=== PATIENT | female | born 1985 | race American Indian/Alaskan Native ===

== ENCOUNTER 2021-08-28 04:16 | Emergency (ER) | payer SELFPAY ==
[2021-08-28] MEDS ORDERED: IPRATROPIUM 0.02% NEBU 2.5 ML IH ONE (04:31)
[2021-08-28] MEDS ORDERED: MAGNESIUM SULFATE 2 GM/50 ML BAG IV ONE (04:31)
[2021-08-28] MEDS ORDERED: methylPREDNISolone Sod Succinate 125 MG/2 ML INJ IV ONE (04:31)
[2021-08-28] MEDS ORDERED: ALBUTEROL 2.5 MG/3 ML NEBU IH ONE ×2 (04:31→07:54)
--- NOTE | 2021-08-28 04:57 | Emergency Department Report ---
HPI <NOBLE SERNA - Last Filed: 08/28/21 10:15> - HPI HPI: This is a 36-year-old -[place] female presents to the emergency department with a 2-day history of progressively worsening shortness of breath, wheezing, mixed dry and productive cough. The patient has been using her home albuterol nebulizer treatments and inhalers without much relief. She does have a past medical history of asthma. No recent travel or sick contacts at home. She denies any fever, chest pain, lower extremity swelling. The shortness of breath worsens with exertion. No orthopnea. <DANYELL MEDINA - Last Filed: 08/28/21 21:12> - General Chief Complaint: Adult Asthma Time Seen by Provider: 08/28/21 04:31 ED Past Medical Hx <NOBLE SERNA - Last Filed: 08/28/21 10:15> - Past Medical History Previous Medical History?: Yes Hx Asthma: Yes - Surgical History Past Surgical History?: No <DANYELL MEDINA - Last Filed: 08/28/21 21:12> - Medications Home Medications: Home Medications Medication Instructions Recorded Confirmed Last Taken Type ALBUTEROL NEB's [Proventil 0.083% 2.5 mg IH TID PRN #1 box 08/28/21 Unknown Rx NEBS] Albuterol Mdi (or & Nicu Only) 2 puff IH QID PRN #8.5 gram 08/28/21 Unknown Rx [ProAir HFA Inhaler] predniSONE [Deltasone] 20 mg PO BID #8 tab 08/28/21 Unknown Rx ED Review of Systems ROS: Stated complaint: ASTHMA ATTACK Other details as noted in HPI <NOBLE SERNA - Last Filed: 08/28/21 10:15> ROS: Stated complaint: ASTHMA ATTACK Other details as noted in HPI Comment: All other systems reviewed and negative Constitutional: denies: chills, fever Eyes: denies: eye pain, vision change ENT: denies: ear pain, throat pain Respiratory: cough, shortness of breath, wheezing. denies: orthopnea Cardiovascular: denies: chest pain, edema Gastrointestinal: denies: abdominal pain, vomiting Genitourinary: denies: dysuria, discharge Musculoskeletal: denies: back pain, arthralgia Skin: denies: rash, lesions Neurological: denies: headache, weakness <CAROLDANYELL S - Last Filed: 08/28/21 21:12> Physical Exam - Physical Exam Vital Signs: Vital Signs 08/28/21 08/28/21 08/28/21 04:21 04:36 04:44 Temperature 98.3 F Pulse Rate 100 H Pulse Rate [ 87 Throughout] Respiratory 18 Rate Respiratory 12 Rate [ Throughout] Blood Pressure 130/88 O2 Sat by Pulse 97 98 Oximetry 08/28/21 08/28/21 08/28/21 04:45 04:57 05:00 Temperature Pulse Rate 96 H Pulse Rate [ 90 Throughout] Respiratory 14 Rate Respiratory 13 Rate [ Throughout] Blood Pressure 122/63 O2 Sat by Pulse 98 97 Oximetry 08/28/21 08/28/21 08/28/21 05:01 05:15 05:31 Temperature Pulse Rate 96 H 95 H 83 Pulse Rate [ Throughout] Respiratory 13 21 20 Rate Respiratory Rate [ Throughout] Blood Pressure 122/93 140/92 140/85 O2 Sat by Pulse 100 Oximetry 08/28/21 08/28/21 08/28/21 05:45 06:01 06:15 Temperature Pulse Rate 88 92 H 94 H Pulse Rate [ Throughout] Respiratory 23 21 18 Rate Respiratory Rate [ Throughout] Blood Pressure 94/68 135/97 119/71 O2 Sat by Pulse Oximetry <NOBLE SERNA - Last Filed: 08/28/21 10:15> - Physical Exam Vital Signs: Vital Signs 08/28/21 08/28/21 04:21 04:44 Temperature 98.3 F Pulse Rate 100 H Pulse Rate [ 87 Throughout] Respiratory 18 Rate Respiratory 12 Rate [ Throughout] Blood Pressure 130/88 O2 Sat by Pulse 97 Oximetry Physical Exam: GENERAL: The patient is well-developed well-nourished. HENT: Normocephalic. Atraumatic. Patient has moist mucous membranes. EYES: Extraocular motions are intact. NECK: Supple. Trachea is midline. CHEST/LUNGS: Moderate to severe wheezing throughout the chest. There is tachypnea and conversational dyspnea. HEART/CARDIOVASCULAR: Regular. There is no tachycardia. There is no murmur. ABDOMEN: Abdomen is soft, nontender. Patient has normal bowel sounds. SKIN: Skin is warm and dry. NEURO: The patient is awake, alert, and oriented. The patient is cooperative. The patient has no focal neurologic deficits. Normal speech. MUSCULOSKELETAL: There is no tenderness or deformity. There is no limitation range of motion. <DANYELL MEDINA S - Last Filed: 08/28/21 21:12> ED Course Vital Signs 08/28/21 08/28/21 08/28/21 04:21 04:36 04:44 Temperature 98.3 F Pulse Rate 100 H Pulse Rate [ 87 Throughout] Respiratory 18 Rate Respiratory 12 Rate [ Throughout] Blood Pressure 130/88 O2 Sat by Pulse 97 98 Oximetry 08/28/21 08/28/21 08/28/21 04:45 04:57 05:00 Temperature Pulse Rate 96 H Pulse Rate [ 90 Throughout] Respiratory 14 Rate Respiratory 13 Rate [ Throughout] Blood Pressure 122/63 O2 Sat by Pulse 98 97 Oximetry 08/28/21 08/28/21 08/28/21 05:01 05:15 05:31 Temperature Pulse Rate 96 H 95 H 83 Pulse Rate [ Throughout] Respiratory 13 21 20 Rate Respiratory Rate [ Throughout] Blood Pressure 122/93 140/92 140/85 O2 Sat by Pulse 100 Oximetry 08/28/21 08/28/21 08/28/21 05:45 06:01 06:15 Temperature Pulse Rate 88 92 H 94 H Pulse Rate [ Throughout] Respiratory 23 21 18 Rate Respiratory Rate [ Throughout] Blood Pressure 94/68 135/97 119/71 O2 Sat by Pulse Oximetry - Reevaluation(s) Reevaluation #1: 08/28/21 07:53 Patient reassessed. Still with persistent wheezing but reports feeling better 08/28/21 10:15 Patient reassessed after additional neb. Wheezing improved. Ambulated without tachypnea or dyspnea. O2 sat remained 100%. Patient feels better and ready for discharge. <NOBLE SERNA - Last Filed: 08/28/21 10:15> Vital Signs 08/28/21 08/28/21 04:21 04:44 Temperature 98.3 F Pulse Rate 100 H Pulse Rate [ 87 Throughout] Respiratory 18 Rate Respiratory 12 Rate [ Throughout] Blood Pressure 130/88 O2 Sat by Pulse 97 Oximetry <DANYELL MEDINA S - Last Filed: 08/28/21 21:12> ED Medical Decision Making - Lab Data Result diagrams: 08/28/21 04:53 08/28/21 04:53 - Radiology Data Radiology results: report reviewed (Chest x-ray: No acute finding) <KAREEMWINNOBLE C - Last Filed: 08/28/21 10:15> - Lab Data Result diagrams: 08/28/21 04:53 08/28/21 04:53 Lab Results 08/28/21 08/28/21 Range/Units 04:53 04:53 WBC 6.8 (4.5-11.0) K/mm3 RBC 4.68 (3.65-5.03) M/mm3 Hgb 14.4 H (10.1-14.3) gm/dl Hct 42.8 (30.3-42.9) % MCV 91 (79-97) fl MCH 31 (28-32) pg MCHC 34 (30-34) % RDW 13.0 L (13.2-15.2) % Plt Count 341 (140-440) K/mm3 Lymph % (Auto) 38.8 H (13.4-35.0) % Ferry % (Auto) 9.9 H (0.0-7.3) % Eos % (Auto) 12.2 H (0.0-4.3) % Baso % (Auto) 0.9 (0.0-1.8) % Lymph # (Auto) 2.6 (1.2-5.4) K/mm3 Ferry # (Auto) 0.7 (0.0-0.8) K/mm3 Eos # (Auto) 0.8 H (0.0-0.4) K/mm3 Baso # (Auto) 0.1 (0.0-0.1) K/mm3 Seg Neutrophils % 38.2 L (40.0-70.0) % Seg Neutrophils # 2.6 (1.8-7.7) K/mm3 Sodium 140 (137-145) mmol/L Potassium 4.7 (3.6-5.0) mmol/L Chloride 103.7 (98-107) mmol/L Carbon Dioxide 23 (22-30) mmol/L Anion Gap 18 mmol/L BUN 19 H (7-17) mg/dL Creatinine 0.7 (0.6-1.2) mg/dL Estimated GFR > 60 ml/min BUN/Creatinine Ratio 27 % Glucose 102 H (65-100) mg/dL Calcium 10.2 (8.4-10.2) mg/dL - Radiology Data Radiology results: image reviewed interpreted by me: Chest x-ray does not show any acute process. There are no pleural effusions, obvious pneumonia and there is no pneumothorax. No widened mediastinum. - Medical Decision Making The patient presents with a 2-day history of progressively worsening shortness of breath, wheezing, coughing, that she feels is consistent with her asthma. This is despite using home nebulizer and inhaler treatments. On examination she has moderate to severe bronchospasm and does appear in some slight respiratory distress, but there is no hypoxia. Patient was immediately given a continuous breathing treatment, Solu-Medrol, magnesium. Labs are unremarkable including CBC and metabolic panel. Chest x-ray does not show any pneumonia, pleural effusions, pneumothorax, widened mediastinum, or any other acute process. The patient was reevaluated after the initial treatments were given and appears greatly improved. She still has some residual wheezing, but there is no conversational dyspnea, and the bronchospasm is now mild. Patient says she is feeling much better. This case was signed out to my colleague to reevaluate for any further breathing treatments with the plan that she will most likely be able to be discharged home. The patient will be given a prescription for her albuterol inhaler and nebulizer treatments, as well as a course of steroids. She was given an outpatient referral for pulmonology. <DANYELL MEDINA - Last Filed: 08/28/21 21:12> Critical Care Time: No Critical care attestation.: If time is entered above; I have spent that time in minutes in the direct care of this critically ill patient, excluding procedure time. <NOBLE SERNA - Last Filed: 08/28/21 10:15> Critical Care Time: No Critical care attestation.: If time is entered above; I have spent that time in minutes in the direct care of this critically ill patient, excluding procedure time. <DANYELL MEDINA - Last Filed: 08/28/21 21:12> ED Disposition Time of Disposition: 10:16 <NOBLE SERNA - Last Filed: 08/28/21 10:15> Is pt being admited?: No <DANYELL MEDINA - Last Filed: 08/28/21 21:12> Clinical Impression: Asthma exacerbation, Bronchospasm Disposition: 01 HOME / SELF CARE / HOMELESS Condition: Stable Instructions: Asthma, Adult, Bronchospasm, Adult Additional Instructions: Please follow-up with your primary care physician in the next few days. I have given you a referral for a local international relations teacher, Dr. Johnson, to follow-up regarding your asthma. Take all medications as prescribed. Return to the emergency department with any worsening of your symptoms, new or concerning symptoms not addressed during this current emergency department visit, or with any acute distress. Prescriptions: predniSONE [Deltasone] 20 mg PO BID #8 tab Albuterol Mdi (or & Nicu Only) [ProAir HFA Inhaler] 2 puff IH QID PRN #8.5 gram PRN Reason: Shortness Of Breath ALBUTEROL NEB's [Proventil 0.083% NEBS] 2.5 mg IH TID PRN #1 box PRN Reason: Wheezing Referrals: PRIMARY CAREMD [Primary Care Provider] - 2-3 Days RITO JOHNSON MD [Staff Physician] - 2-3 Days
[2021-08-28 05:27] LABS: Basophils # (Auto) 0.1 K/mm3 (0.0-0.1); Basophils % (Auto) 0.9 % (0.0-1.8); Eosinophils # (Auto) 0.8 K/mm3 (0.0-0.4); Eosinophils % (Auto) 12.2 % (0.0-4.3); Hematocrit 42.8 % (30.3-42.9); Hemoglobin 14.4 gm/dl (10.1-14.3); Lymphocytes # (Auto) 2.6 K/mm3 (1.2-5.4); Lymphocytes % (Auto) 38.8 % (13.4-35.0); Mean Corpuscular HGB Conc 34 % (30-34); Mean Corpuscular Volume 91 fl (79-97); Monocytes # (Auto) 0.7 K/mm3 (0.0-0.8); Monocytes % (Auto) 9.9 % (0.0-7.3); Platelet Count 341 K/mm3 (140-440); Red Blood Count 4.68 M/mm3 (3.65-5.03)
[2021-08-28 05:41] LABS: Blood Urea Nitrogen 19 mg/dL (7-17); Calcium 10.2 mg/dL (8.4-10.2); Hemolysis Index 2
[2021-08-28 05:43] LABS: BUN/Creatinine Ratio 27
--- NOTE | 2021-08-28 06:30 | XRay Report ---
CHEST 1 VIEW INDICATION / CLINICAL INFORMATION: SOB. Dyspnea FINDINGS: SUPPORT DEVICES: None. HEART / MEDIASTINUM: No significant abnormality. LUNGS / PLEURA: No significant pulmonary or pleural abnormality. No pneumothorax. ADDITIONAL FINDINGS: No significant additional findings. IMPRESSION: 1. No acute findings. Signer Name: Jatin Watt MD Signed: 08/28/2021 6:26 AM Workstation Name: [id number]
[2021-08-28 09:24] VITALS: BP 112/67
== END 2021-08-28 10:50 | disposition home or self-care (01) ==
LOC: ED 04:16
DX: J45.901 Unspecified asthma with (acute) exacerbation (principal)
CPT/HCPCS: 36415; 71045; 80048; 85025; 94640; 96365; 96375; 99284; J2930; J3475; 94644